=== PATIENT | male | born 1985 | race Caucasian/White ===

== ENCOUNTER 2025-02-09 00:18 | Emergency (ER) | payer MEDICAID ==
[~2025-02-09] VITALS: Ht 154.9 cm; Wt 59.0 kg
[2025-02-09 00:22] VITALS: O2SAT 99
[2025-02-09] MEDS ORDERED: CARBAMIDE PEROXIDE OTIC DROP 15 ML BOTTLE ONE (00:49)
[2025-02-09] MEDS: CARBAMIDE PEROXIDE OTIC DROP 15 ML BOTTLE EACH EAR ONE (00:55)
[2025-02-09] MEDS ORDERED: CARB15DR63 EACH EAR (01:33)
== END 2025-02-09 01:41 | disposition home or self-care (01) ==
LOC: ER 00:31
DX: H61.23 Impacted cerumen, bilateral (principal); R03.0 Elevated blood-pressure reading, without diagnosis of hypertension
CPT/HCPCS: A4606; A4663